=== PATIENT | female | born 1990 | race African-American/Black ===

== ENCOUNTER 2022-01-19 04:32 | Emergency (ER) | payer OTHER ==
[2022-01-19] MEDS ORDERED: Dexamethasone 20 MG/5 ML VIAL ONE (04:49)
[2022-01-19] MEDS ORDERED: Acetaminophen 500 MG TAB ONE (04:52)
== END 2022-01-19 05:08 | disposition home or self-care (01) ==
LOC: NAV ERS 04:32
DX: J01.00 Acute maxillary sinusitis, unspecified (principal)
CPT/HCPCS: 96372; 99283; J1100